=== PATIENT | male | born 1980 | race Asian ===

== ENCOUNTER 2020-03-26 10:48 | Emergency (ER) | payer BC ==
[~2020-03-26] VITALS: Ht 175.3 cm; Wt 95.3 kg
[2020-03-26 12:01] VITALS: BP 128/69; TEMP 98
== END 2020-03-26 12:01 | disposition home or self-care (01) ==
LOC: ED 10:56
DX: S09.8XXA Other specified injuries of head, initial encounter (principal); S83.8X2A Sprain of other specified parts of left knee, initial encounter; V29.3XXA Motorcycle rider (driver) (passenger) injured in unspecified nontraffic accident, initial encounter; Y92.89 Other specified places as the place of occurrence of the external cause
CPT/HCPCS: 99283